=== PATIENT | female | born 1995 | race Caucasian/White ===

== ENCOUNTER 2022-06-23 12:38 | Inpatient (IN) | payer BC ==
[2022-06-23] MEDS ORDERED: Misoprostol 200 MCG Tab PO PRN (15:01)
[2022-06-23] MEDS ORDERED: Lidocaine 1% 50 ML MDV INJECT PRN (15:01)
[2022-06-23] MEDS ORDERED: Tranexamic Acid 1,000 MG in Sodium Chloride 0.9% 100 ML IV PRN (15:01)
[2022-06-23] MEDS ORDERED: Sodium Chloride 0.9% 20 ML SDV IV PRN (15:01)
[2022-06-23] MEDS ORDERED: Methylergonovine 0.2 MG/1 ML Amp IM PRN (15:01)
[2022-06-23] MEDS ORDERED: Butorphanol 1 MG/ML SDV IVPUSH PRN (15:01)
[2022-06-23] MEDS ORDERED: Sodium Chloride 0.9% 2.5 ML Syringe FLUSH PRN (15:01)
[2022-06-23] MEDS ORDERED: Water For Irrigation,Sterile 1,000 ML Container IRR PRN (15:01)
[2022-06-23] MEDS ORDERED: Carboprost Tromethamine 250 MCG/1 ML Amp IM PRN (15:01)
[2022-06-23] MEDS ORDERED: Sodium Chloride 0.9% 10 ML Syringe FLUSH PRN (15:01)
[2022-06-23] MEDS ORDERED: Oxytocin/0.9 % Sodium Chloride 30 UNIT/500 ML BAG IV SCH (15:15)
[2022-06-23] MEDS ORDERED: Lactated Ringers 1,000 ML IV SCH (15:15)
[2022-06-23] MEDS ORDERED: Acetaminophen 500 MG Tab PO PRN (18:08)
[2022-06-23] MEDS ORDERED: Ibuprofen 400 MG Tab PO PRN (18:08)
[2022-06-23] MEDS ORDERED: oxyCODONE 5 MG Tab PO PRN (18:08)
[2022-06-23] MEDS ORDERED: Ondansetron 4 MG/2 ML SDV IVPUSH PRN (18:08)
[2022-06-23] MEDS ORDERED: Lanolin 100% Cream 7 GM Tube TOP PRN (18:08)
[2022-06-23] MEDS ORDERED: Bisacodyl 10 MG Supp RECTAL PRN (18:08)
[2022-06-24] MEDS: Acetaminophen 500 MG Tab PO PRN ×2 (00:52→09:14)
[2022-06-24] MEDS: Ibuprofen 800 MG Tab PO PRN ×3 (06:25→21:01)
[2022-06-24] MEDS: Witch Hazel Medicated Pads 40/Jar TOP PRN (09:15)
[2022-06-24] MEDS: Benzocaine/Menthol 20%-0.5% Spray 78 GM Cannister TOP PRN (09:15)
[2022-06-24] MEDS: Docusate Sodium 100 MG Cap PO PRN (13:04)
[2022-06-25] MEDS: Acetaminophen 500 MG Tab PO PRN ×2 (05:23→12:42)
[2022-06-25] MEDS: Ibuprofen 800 MG Tab PO PRN ×2 (09:25→16:18)
[2022-06-25] MEDS: Docusate Sodium 100 MG Cap PO PRN (09:26)
[2022-06-25] MEDS: Witch Hazel Medicated Pads 40/Jar TOP PRN (12:45)
[2022-06-25] MEDS: Benzocaine/Menthol 20%-0.5% Spray 78 GM Cannister TOP PRN (12:45)
== END 2022-06-25 17:05 | disposition home or self-care (01) | DRG 560 ==
LOC: MW.OBCHECK 12:38 → MW.OB 12:40 → MW.OBCHECK 15:36 → OBSVTOIN 17:32 → MW.OB 22:00
PROVIDERS: ADMIT Obstetrics & Gynecology; ATTEND Obstetrics & Gynecology
PROC: 10E0XZZ Delivery of Products of Conception, External Approach (ICD-10-PCS; principal; 2022-06-23)
PROC: 0KQM0ZZ Repair Perineum Muscle, Open Approach (ICD-10-PCS; 2022-06-23)
PROC: 3E0234Z Introduction of Serum, Toxoid and Vaccine into Muscle, Percutaneous Approach (ICD-10-PCS; 2022-06-24)
DX: O48.0 Post-term pregnancy (principal); Z37.0 Single live birth; O70.1 Second degree perineal laceration during delivery; O26.893 Other specified pregnancy related conditions, third trimester; Z67.41 Type O blood, Rh negative; Z3A.40 40 weeks gestation of pregnancy; Z20.822 Contact with and (suspected) exposure to COVID-19
CPT/HCPCS: 36415; 59025; 59409; 82803; 85014; 85018; 85027; 85460; 86592; 86803; 86850; 86900; 86901; 87340; 87389; A9270-GY; J2790; U0002

== ENCOUNTER 2024-08-13 18:50 | Inpatient (IN) | payer BC ==
[2024-08-13] MEDS ORDERED: Nalbuphine 10 MG/1 ML Vial IVPUSH PRN (18:57)
[2024-08-13] MEDS ORDERED: Sodium Chloride 0.9% 2.5 ML Syringe FLUSH PRN (18:57)
[2024-08-13] MEDS ORDERED: Terbutaline 1 MG/ML SDV SUBCUT PRN (18:57)
[2024-08-13] MEDS ORDERED: Sodium Chloride 0.9% 10 ML Syringe FLUSH PRN (18:57)
[2024-08-13] MEDS ORDERED: Misoprostol 200 MCG Tab RECTAL PRN (18:57)
[2024-08-13] MEDS ORDERED: Butorphanol 2 MG/ML SDV IVPUSH PRN (18:57)
[2024-08-13] MEDS ORDERED: Carboprost Tromethamine 250 MCG/1 mL Vial IM PRN (18:57)
[2024-08-13] MEDS ORDERED: Ondansetron 4 MG/2 ML SDV IVPUSH PRN (18:57)
[2024-08-13] MEDS ORDERED: Sodium Chloride 0.9% 20 ML SDV IV PRN (18:57)
[2024-08-13] MEDS ORDERED: Methylergonovine 0.2 MG/1 ML Amp IM PRN (18:57)
[2024-08-13] MEDS ORDERED: Lactated Ringers 1,000 ML IV SCH (19:00)
[2024-08-13 20:19] LABS: HEMATOCRIT 38.1 % (37.0-47.0); HEMOGLOBIN 13.7 g/dL (12.0-16.0); MEAN CORPUSCULAR HEMOGLOBIN 31.3 pg (28.0-32.0); MEAN PLATELET VOLUME 11.2 fL (9.4-12.3); PLATELET COUNT,PLT 163 K/uL (150-400); RED BLOOD CELL COUNT 4.38 M/uL (4.10-5.30); WHITE BLOOD CELL COUNT,WBC 19.33 K/uL (3.9-11.3)
[2024-08-13] MEDS: Water For Irrigation,Sterile 1,000 ML Container IRR PRN (20:30)
[2024-08-13] MEDS: Lidocaine 1% 50 ML MDV INJECT PRN (20:35)
[2024-08-13] MEDS: Oxytocin/0.9 % Sodium Chloride 30 UNIT/500 ML BAG IV SCH (20:36)
[2024-08-13] MEDS ORDERED: Docusate Sodium 100 MG Cap PO PRN (21:50)
[2024-08-13 21:51] LABS: PH,UMBILICAL ARTERIAL 7.285 (7.18-7.38); PH,UMBILICAL VENOUS 7.323 (7.25-7.45)
[2024-08-13] MEDS ORDERED: Witch Hazel Medicated Pads 40/Jar TOP ONE (22:01)
[2024-08-13] MEDS ORDERED: Benzocaine/Menthol 20%-0.5% Spray 78 GM Cannister ONE (22:01)
[2024-08-13] MEDS: Benzocaine/Menthol 20%-0.5% Spray 78 GM Cannister TOP PRN (22:15)
[2024-08-13] MEDS: Witch Hazel Medicated Pads 40/Jar TOP PRN (22:15)
[2024-08-13] MEDS: Ibuprofen 800 MG Tab PO PRN (23:31)
[2024-08-13] MEDS: Lanolin 100% Cream 7 GM Tube TOP PRN (23:31)
[2024-08-14 05:20] LABS: BASOPHILS ABSOLUTE AUTO 0.02 K/uL (0.00-0.20); BASOPHILS PERCENT AUTO 0.1 % (0.0-1.0); EOSINOPHILS ABSOLUTE AUTO 0.02 K/uL (0.00-0.45); EOSINOPHILS PERCENT AUTO 0.1 % (0.0-6.0); HEMATOCRIT 33.1 % (37.0-47.0); HEMOGLOBIN 11.6 g/dL (12.0-16.0); IMMATURE GRAN ABSOLUTE AUTO 0.08 K/uL (0.00-0.05); IMMATURE GRAN PERCENT AUTO 0.5 % (0.0-0.4); LYMPHOCYTES PERCENT AUTO 11.8 % (24.0-44.0); MEAN CORPUSCULAR VOLUME 88.5 fL (83.0-99.0); MEAN PLATELET VOLUME 11.1 fL (9.4-12.3); MONOCYTES ABSOLUTE AUTO 0.47 K/uL (0.00-0.80); MONOCYTES PERCENT AUTO 2.8 % (0.0-8.0); NEUTROPHILS PERCENT AUTO 84.7 % (41.0-71.0); PLATELET COUNT,PLT 152 K/uL (150-400); RED BLOOD CELL COUNT 3.74 M/uL (4.10-5.30); WHITE BLOOD CELL COUNT,WBC 16.89 K/uL (3.9-11.3)
[2024-08-14] MEDS: Prenatal Multivitamin with Calcium/Folic Acid/Iron Tab PO SCH (08:29)
[2024-08-14] MEDS: Docusate Sodium 100 MG Cap PO PRN (08:29)
[2024-08-14] MEDS: Ferrous Sulfate 325 MG Tab PO SCH (08:29)
[2024-08-14] MEDS: Acetaminophen 500 MG Tab PO PRN (13:27)
== END 2024-08-15 12:42 | disposition home or self-care (01) | DRG 560 ==
LOC: MW.OB 18:50 → OBSVTOIN 20:56 → MW.OB 22:54
PROVIDERS: ADMIT Obstetrics & Gynecology; ATTEND Obstetrics & Gynecology
PROC: 10E0XZZ Delivery of Products of Conception, External Approach (ICD-10-PCS; principal; 2024-08-13)
PROC: 10907ZC Drainage of Amniotic Fluid, Therapeutic from Products of Conception, Via Natural or Artificial Opening (ICD-10-PCS; 2024-08-13)
PROC: 0UQGXZZ Repair Vagina, External Approach (ICD-10-PCS; 2024-08-13)
PROC: 3E0334Z Introduction of Serum, Toxoid and Vaccine into Peripheral Vein, Percutaneous Approach (ICD-10-PCS; 2024-08-14)
DX: O99.344 Other mental disorders complicating childbirth (principal); Z37.0 Single live birth; D62 Acute posthemorrhagic anemia; O71.4 Obstetric high vaginal laceration alone; F32.A Depression, unspecified; O26.893 Other specified pregnancy related conditions, third trimester; O90.81 Anemia of the puerperium; Z3A.39 39 weeks gestation of pregnancy; Z90.89 Acquired absence of other organs; Z67.41 Type O blood, Rh negative
CPT/HCPCS: 36415; 59025; 59409; 82803; 85025; 85027; 85460; 86592; 86850; 86900; 86901; A9270-GY; J2590; J2791; J3490